=== PATIENT | female | born 1965 | race Caucasian/White ===

== ENCOUNTER 2019-02-18 11:24 | Emergency (ER) | payer SELFPAY, OTHER ==
[2019-02-18] MEDS ORDERED: ACETAMINOPHEN 325 MG TAB (13:49)
[2019-02-18] MEDS: ACETAMINOPHEN 325 MG TAB PO (14:04)
[2019-02-18] MEDS: IBUPROFEN 600 MG TAB PO (14:04)
== END 2019-02-18 15:22 | disposition home or self-care (01) ==
LOC: FTE 11:24
DX: M54.2 Cervicalgia (principal)
CPT/HCPCS: 72040; 99283-25